=== PATIENT | female | born 1955 | race Caucasian/White ===

== ENCOUNTER 2016-07-07 08:11 | Day surgery (SDC) | payer OTHER ==
[~2016-07-07 08:11] MED LIST: Lactated Ringers 1,000 ML IV SCH
[2016-07-07] MEDS ORDERED: Midazolam 1 MG/ML 2 ML SDV ONE (08:19)
[2016-07-07] MEDS ORDERED: fentaNYL 100 MCG/2 ML SDV ONE (08:19)
[2016-07-07] MEDS ORDERED: Propofol 200 MG/20 ML SDV ONE (08:19)
--- NOTE | 2016-07-07 08:35 | PCM.PREANE ---
Preanesthetic Assessment - ANESTHESIA/TRANSFUSION/FAMILY HX Anesthesia/Transfusion History: Prior Anesthesia Other Type of Anesthesia Reaction Comment: states "she wakes up angry" Family History of Anesthesia Reaction: No - REVIEW OF SYSTEMS Constitutional: Reports: no symptoms SENIOR STATISTICIAN: Reports: no symptoms Respiratory: Reports: no symptoms Cardiovascular: Reports: no symptoms GI: Reports: no symptoms Other: Reports: none - PHYSICAL ASSESSMENT O2 Sat by Pulse Oximetry: 94 RR: 16 Vital Signs: Last Vital Signs Temp 36 C 07/07/16 08:21 Pulse 92 07/07/16 08:21 Resp 16 07/07/16 08:21 BP 138/74 07/07/16 08:21 Pulse Ox 94 L 07/07/16 08:21 Height: 1.73 m Weight: 83.007 kg NPO Status Date: 07/06/16 NPO Status Time: 23:00 ASA Class: 2 Mental Status: alert & oriented x3 Airway Class: Mallampati = 1 Dentition: Reports: normal dentition ROM/Head Extension: full Respiratory Status: lungs clear to auscultation bilaterally Cardiovascular Status: regular rate & rhythm, normal S1, S2, no murmur - ALLERGIES Allergies/Adverse Reactions: Allergies Allergy/AdvReac Type Severity Reaction Status Date / Time adhesive tape Allergy Itching Verified 07/03/16 08:52 animal dander Allergy Sneezing Verified 07/03/16 08:52 dust mite Allergy Sneezing Uncoded 07/03/16 08:52 oranges Allergy Sneezing Uncoded 07/03/16 08:52 - BLOOD Blood Available: No - ANESTHESIA PLAN Preop Beta Momo: No Anesthesia Type Planned: MAC - ACKNOWLEDGEMENTS Pt an appropriate candidate for the planned anesthesia: Yes Alternatives and risks of anesthesia discussed w pt/guardian: Yes Pt/Guardian understands and agree with anesthesia plan: Yes PreAnesthesia Questionnaire HEENT History: Reports: Allergic rhinitis Cardiovascular History: Reports: High cholesterol Respiratory History: Reports: Sleep apnea 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 HYDRAULIC History: Reports: Musculoskeletal History: Reports: Fracture Other Musculoskeletal History: fx foot and elbow Psychiatric History: Reports: Anxiety, Depression, Panic attack Endocrine/Metabolic History: Reports: Hypothyroidism Hematologic History: Reports: Blood transfusion(s) Other Hematologic History: blood transfusion 25 yrs ago for post bleed - Past Surgical History Head Surgeries/Procedures: Reports: None HEENT Surgical History: Reports: Naso-sinus surgery Female Surgical History: Reports: Tubal ligation Musculoskeletal Surgical History: Reports: Other (see below) Other Musculoskeletal Surgeries/Procedures:: surgery to rt middle finger - SUBSTANCE USE Smoking Status *Q: Current Every Day Smoker Tobacco Use Within Last Twelve Months: Cigarettes Other Tobacco Use Within Last Twelve Months: smokes approx 5 cigarettes per day Recreational Drug Use History: No - HOME MEDS Home Medications: Home Meds Aspirin [[place] Aspirin] 81 mg PO DAILY 07/02/16 [History] Ergocalciferol (Vitamin D2) [Vitamin D] 400 units PO DAILY 07/02/16 [History] Fexofenadine [Geovanna] 180 mg PO DAILY PRN 07/02/16 [History] Levothyroxine Sodium 80 mg PO DAILY 07/02/16 [History] Pravastatin Sodium 80 mg PO DAILY 07/02/16 [History] Venlafaxine [Venlafaxine HCl ER] 150 mg PO DAILY 07/02/16 [History] - CURRENT (IN HOUSE) MEDS Current Meds: Current Medications Lactated Ringer's (Ringers, Lactated) 1,000 mls @ 125 mls/hr IV ASDIRECTED COUNTS INCLUDE 234 BEDS AT THE [facility] Last Admin: 07/07/16 08:22 Dose: 125 mls/hr Discontinued Medications Fentanyl (Sublimaze) Confirm Administered Dose 100 mcg .ROUTE .STK-MED ONE Stop: 07/07/16 08:20 Midazolam HCl (Versed 1 Mg/Ml) Confirm Administered Dose 2 mg .ROUTE .STK-MED ONE Stop: 07/07/16 08:20 Propofol (Diprivan 20 Ml) Confirm Administered Dose 400 mg .ROUTE .STK-MED ONE Stop: 07/07/16 08:20
--- NOTE | 2016-07-07 10:12 | PCM.OPNOTE ---
- General Post-Op/Procedure Note Date of Surgery/Procedure: 07/07/16 Operative Procedure(s): Colonoscopy Pre Op Diagnosis: Desire for colorectal cancer screening Post-Op Diagnosis: No evidence of neoplasia Anesthesia Technique: MAC (ASA II) Primary Surgeon: Rupert San Police Clerk: Meaghan Singleton Condition: Good Free Text/Narrative:: Dictation [id number]
[2016-07-07] MEDS ORDERED: Lactated Ringers 1,000 ML IV SCH (10:15)
[2016-07-07 10:41] VITALS: BP 126/83
--- NOTE | 2016-07-07 10:52 | PCM.POSTAN ---
POST ANESTHESIA ASSESSMENT - MENTAL STATUS Mental Status: alert, oriented - RESPIRATORY Respiratory Status: respiratory rate WNL - CARDIOVASCULAR CV Status: pulse rate WNL - GASTROINTESTINAL GI Status: no symptoms - POST OP HYDRATION Hydration Status: adequate & stable
--- NOTE | 2016-07-07 10:52 | PCM48HPAN ---
Post Anesthesia Note - EVALUATION WITHIN 48HRS OF ANESTHETIC Vital Signs in Normal Range: Yes Patient Participated in Evaluation: Yes Respiratory Function Stable: Yes Airway Patent: Yes Cardiovascular Function Stable: Yes Hydration Status Stable: Yes Pain Control Satisfactory: Yes Nausea and Vomiting Control Satisfactory: Yes Mental Status Recovered: Yes
--- NOTE | 2016-07-07 17:42 | OR ---
SURGEON: Rupert San M.D. DATE OF PROCEDURE: 07/07/2016 OPERATION PERFORMED: Colonoscopy. RFID SYSTEMS ENGINEER: Dr. Singleton. ANESTHESIA: Local MAC. ASA CLASSIFICATION: II. PREOPERATIVE DIAGNOSIS: Desire for colorectal cancer screening. POSTOPERATIVE DIAGNOSIS: No evidence of neoplasia. DESCRIPTION OF PROCEDURE: The patient was taken to the endoscopy room, positioned on the endoscopy table in the left lateral decubitus position. Time-out was called for appropriate identification of the patient and procedure. Monitored anesthesia care was provided. The colonoscope was inserted into the rectum and advanced with moderate difficulty to the cecum where the colonoscope was retroflexed to visualize the ascending colon from below. The colonoscope was then straightened and slowly withdrawn. The cecum, ascending colon, hepatic flexure, transverse colon, splenic flexure, descending colon, sigmoid colon, rectum were very well visualized. No tumors, polyps, diverticula, or angiodysplasia was noted. There was no evidence of inflammatory bowel disease. Once the colonoscope was withdrawn to the rectum, it was retroflexed to visualize the anal orifice from above. Again, no tumors or polyps were seen and there were no acute hemorrhoidal changes. The colonoscope was then straightened, the rectum aspirated, and colonoscope removed. The patient tolerated the procedure well and was taken to recovery room in stable condition. JHONATAN MACE /[id number]
== END 2016-07-07 11:00 | disposition home or self-care (01) ==
LOC: MW.SDS 08:11
PROVIDERS: ATTEND Surgery
PROC: 0DJD8ZZ Inspection of Lower Intestinal Tract, Via Natural or Artificial Opening Endoscopic (ICD-10-PCS; principal; 2016-07-07)
DX: Z12.11 Encounter for screening for malignant neoplasm of colon (principal); F41.9 Anxiety disorder, unspecified; E78.00 Pure hypercholesterolemia, unspecified; E03.9 Hypothyroidism, unspecified; J45.909 Unspecified asthma, uncomplicated; F17.210 Nicotine dependence, cigarettes, uncomplicated; G47.30 Sleep apnea, unspecified; F32.9 Major depressive disorder, single episode, unspecified; Z91.018 Allergy to other foods; Z91.040 Latex allergy status; Z91.048 Other nonmedicinal substance allergy status; Z79.82 Long term (current) use of aspirin; Z79.899 Other long term (current) drug therapy; Z98.51 Tubal ligation status; Z98.890 Other specified postprocedural states; Z99.89 Dependence on other enabling machines and devices
CPT/HCPCS: 45378; J2250; J3010; J7120; J2704

== ENCOUNTER 2024-03-21 13:47 | Emergency (ER) | payer MEDICARE, OTHER ==
[2024-03-21 14:41] LABS: BASOPHILS ABSOLUTE AUTO 0.09 K/uL (0.00-0.20); BASOPHILS PERCENT AUTO 1.1 % (0.0-1.0); EOSINOPHILS ABSOLUTE AUTO 0.37 K/uL (0.00-0.45); EOSINOPHILS PERCENT AUTO 4.6 % (0.0-6.0); HEMATOCRIT 40.1 % (37.0-47.0); HEMOGLOBIN 13.5 g/dL (12.0-16.0); IMMATURE GRAN ABSOLUTE AUTO 0.03 K/uL (0.00-0.05); IMMATURE GRAN PERCENT AUTO 0.4 % (0.0-0.4); LYMPHOCYTES ABSOLUTE AUTO 2.25 K/uL (1.00-4.80); LYMPHOCYTES PERCENT AUTO 27.7 % (24.0-44.0); MEAN CORPUSCULAR HEMOGLOBIN 30.9 pg (28.0-32.0); MEAN CORPUSCULAR HGB CONC 33.7 g/dL (32.0-36.0); MEAN CORPUSCULAR VOLUME 91.8 fL (83.0-99.0); MEAN PLATELET VOLUME 10.9 fL (9.4-12.3); MONOCYTES ABSOLUTE AUTO 0.43 K/uL (0.00-0.80); MONOCYTES PERCENT AUTO 5.3 % (0.0-8.0); NEUTROPHILS ABSOLUTE AUTO 4.94 K/uL (1.80-7.70); NEUTROPHILS PERCENT AUTO 60.9 % (41.0-71.0); PLATELET COUNT,PLT 261 K/uL (150-400); RED BLOOD CELL COUNT 4.37 M/uL (4.10-5.30); WHITE BLOOD CELL COUNT,WBC 8.11 K/uL (3.9-11.3)
[2024-03-21 15:32] LABS: A/G RATIO 1.3 (0.9-1.6); ALBUMIN 4.3 g/dL (3.4-5.0); CALCIUM 9.4 mg/dL (8.5-10.1); CARBON DIOXIDE,CO2 27.3 mmol/L (21.0-32.0); EST CRCL DRUG DOSING (CG) 53.09 mL/min; POTASSIUM,K 3.8 mmol/L (3.5-5.1); PROTEIN TOTAL,TP 7.7 g/dL (6.4-8.2)
[2024-03-21 15:54] LABS: TSH ULTRASENSITIVE 1.94 uIU/mL (0.36-3.74)
[2024-03-21 16:18] VITALS: BP 136/84; PULSE 77
== END 2024-03-21 16:17 | disposition home or self-care (01) ==
LOC: MW.ED 13:47
DX: R07.89 Other chest pain (principal); F43.9 Reaction to severe stress, unspecified; Z75.8 Other problems related to medical facilities and other health care; E03.9 Hypothyroidism, unspecified; Z79.890 Hormone replacement therapy; Z91.048 Other nonmedicinal substance allergy status; Z91.018 Allergy to other foods; Z88.8 Allergy status to other drugs, medicaments and biological substances
CPT/HCPCS: 36415; 71046; 71046-26; 80053; 83690; 83735; 84443; 84484; 85025; 93005; 99285